=== PATIENT | male | born 1960 | race Caucasian/White ===

== ENCOUNTER → 2021-02-21 | Outpatient (CLI) | payer BC ==
[~2021-02-21] MED LIST: LISINOPRIL40 MG PO
[2021-02-21 07:50] LABS: HEMOGLOBIN 17.6 gm/dl (14.0-17.5); RED BLOOD COUNT 6.79 M/UL (4.20-5.50); WHITE BLOOD COUNT 6.3 K/UL (4.5-11.0)
== END ==
LOC: OPSV 07:00
PROVIDERS: Urology
DX: D58.2 Other hemoglobinopathies (principal)
CPT/HCPCS: 36415; 85027; 99195

== ENCOUNTER → 2021-03-26 | Outpatient (CLI) | payer BC ==
[2021-03-26 07:51] LABS: HEMOGLOBIN 16.6 gm/dl (14.0-17.5); RED BLOOD COUNT 6.91 M/UL (4.20-5.50); WHITE BLOOD COUNT 6.3 K/UL (4.5-11.0)
== END ==
LOC: OPSV 03-21 07:00
PROVIDERS: Urology
DX: R71.8 Other abnormality of red blood cells (principal); R89.1 Abnormal level of hormones in specimens from other organs, systems and tissues
CPT/HCPCS: 36415; 85027

== ENCOUNTER → 2021-05-03 | Outpatient (CLI) | payer BC ==
[2021-05-03 09:17] LABS: HEMOGLOBIN 17.7 gm/dl (14.0-17.5); WHITE BLOOD COUNT 6.2 K/UL (4.5-11.0)
[2021-05-03 09:18] LABS: RED BLOOD COUNT 7.04 M/UL (4.20-5.50)
== END ==
LOC: OPSV 04-23 07:00
PROVIDERS: Urology
DX: R71.8 Other abnormality of red blood cells (principal)
CPT/HCPCS: 36415; 85027; 99195

== ENCOUNTER → 2021-06-06 | Outpatient (CLI) | payer BC ==
[2021-06-06 08:58] LABS: HEMOGLOBIN 15.5 gm/dl (14.0-17.5); RED BLOOD COUNT 6.51 M/UL (4.20-5.50); WHITE BLOOD COUNT 5.6 K/UL (4.5-11.0)
== END ==
LOC: OPSV 05-30 08:00
PROVIDERS: Urology
DX: N42.9 Disorder of prostate, unspecified (principal); R71.8 Other abnormality of red blood cells
CPT/HCPCS: 36415; 85027

== ENCOUNTER → 2021-07-12 | Outpatient (CLI) | payer BC ==
[2021-07-12 07:44] LABS: HEMOGLOBIN 15.7 gm/dl (14.0-17.5); RED BLOOD COUNT 6.58 M/UL (4.20-5.50)
== END ==
LOC: OPSV 07:00
PROVIDERS: Urology
DX: R86.1 Abnormal level of hormones in specimens from male genital organs (principal)
CPT/HCPCS: 36415; 85027

== ENCOUNTER → 2021-08-09 | Outpatient (CLI) | payer BC ==
[2021-08-09 08:27] LABS: HEMOGLOBIN 17.1 gm/dl (14.0-17.5); RED BLOOD COUNT 6.75 M/UL (4.20-5.50); WHITE BLOOD COUNT 6.6 K/UL (4.5-11.0)
== END ==
LOC: OPSV 07:00
PROVIDERS: Urology
DX: R89.1 Abnormal level of hormones in specimens from other organs, systems and tissues (principal)
CPT/HCPCS: 36415; 85027; 99195

== ENCOUNTER → 2021-09-06 | Outpatient (CLI) | payer BC ==
[2021-09-06 09:13] LABS: HEMOGLOBIN 15.9 gm/dl (14.0-17.5); RED BLOOD COUNT 6.84 M/UL (4.20-5.50); WHITE BLOOD COUNT 9.8 K/UL (4.5-11.0)
== END ==
LOC: OPSV 08:00
PROVIDERS: Urology
DX: R86.1 Abnormal level of hormones in specimens from male genital organs (principal)
CPT/HCPCS: 36415; 85027

== ENCOUNTER → 2021-10-02 | Outpatient (CLI) | payer BC | LOC: SLEEP 21:30 | DX: G47.33 Obstructive sleep apnea (adult) (pediatric) (principal) | CPT/HCPCS: 95811 ==

== ENCOUNTER → 2021-10-11 | Outpatient (CLI) | payer BC ==
[2021-10-11 07:46] LABS: HEMOGLOBIN 15.4 gm/dl (14.0-17.5); RED BLOOD COUNT 6.58 M/UL (4.20-5.50)
== END ==
LOC: OPSV 06:43
PROVIDERS: Urology
DX: D58.2 Other hemoglobinopathies (principal)
CPT/HCPCS: 36415; 85027

== ENCOUNTER → 2021-11-07 | Outpatient (CLI) | payer BC ==
[2021-11-07 08:15] LABS: HEMOGLOBIN 14.8 gm/dl (14.0-17.5); RED BLOOD COUNT 6.75 M/UL (4.20-5.50); WHITE BLOOD COUNT 4.3 K/UL (4.5-11.0)
== END ==
LOC: OPSV 07:50
PROVIDERS: Urology
DX: R71.8 Other abnormality of red blood cells (principal)
CPT/HCPCS: 36415; 85027

== ENCOUNTER → 2021-12-17 | Outpatient (CLI) | payer BC ==
[2021-12-17 07:45] LABS: HEMOGLOBIN 14.3 gm/dl (14.0-17.5); RED BLOOD COUNT 6.43 M/UL (4.20-5.50); WHITE BLOOD COUNT 4.7 K/UL (4.5-11.0)
== END ==
LOC: OPSV 12-05 08:00
PROVIDERS: Urology
DX: R71.8 Other abnormality of red blood cells (principal)
CPT/HCPCS: 36415; 85027